=== PATIENT | male | born 1980 | race Caucasian/White ===

== ENCOUNTER 2019-12-09 10:15 | Emergency (ER) | payer OTHER ==
[~2019-12-09] VITALS: Ht 188 cm; Wt 117.9 kg
[~2019-12-09 10:15] MED LIST: HYDROCODONE-AP1 EAC6 PO; IBUPROFEN 800800 M1 PO; PRILOSEC10 MG PO
[2019-12-09 10:41] LABS: INFLUENZA A ANTIGEN Positive (Negative); INFLUENZA B ANTIGEN Negative (Negative)
[2019-12-09] MEDS ORDERED: TAMIFLU75 MG PO (11:08)
[2019-12-09] MEDS ORDERED: ONDANSETRON HCL4 M2 PO (11:08)
[2019-12-09 12:12] VITALS: BP 180/117
== END 2019-12-09 12:13 | disposition home or self-care (01) ==
LOC: M.ERS 10:15
PROVIDERS: Nurse Practitioner Family
DX: J10.1 Influenza due to other identified influenza virus with other respiratory manifestations (principal)